=== PATIENT | female | born 1975 | race Caucasian/White ===

== ENCOUNTER 2017-08-17 17:02 | Outpatient (CLI) | END 2017-08-17 20:57 | disposition home or self-care (01) ==

== ENCOUNTER 2017-08-20 17:25 | Outpatient (CLI) | END 2017-08-20 18:45 | disposition home or self-care (01) ==

== ENCOUNTER 2017-08-27 16:36 | Outpatient (CLI) | END 2017-08-27 18:55 | disposition home or self-care (01) ==

== ENCOUNTER 2017-08-27 22:49 | Outpatient (CLI) | END 2017-08-28 06:45 | disposition home or self-care (01) ==

== ENCOUNTER 2017-08-29 10:24 | Outpatient (CLI) | END 2017-08-29 12:11 | disposition home or self-care (01) ==

== ENCOUNTER 2017-08-31 09:50 | Outpatient (CLI) | END 2017-08-31 11:55 | disposition home or self-care (01) ==

== ENCOUNTER 2017-09-03 10:55 | Outpatient (CLI) | END 2017-09-03 12:15 | disposition home or self-care (01) ==

== ENCOUNTER 2017-09-06 09:30 | Outpatient (CLI) | END 2017-09-06 11:07 | disposition home or self-care (01) ==

== ENCOUNTER 2017-09-09 17:05 | Inpatient (IN) | END 2017-09-12 16:10 | disposition home or self-care (01) | DRG 778 ==

== ENCOUNTER 2017-09-19 10:00 | Outpatient (CLI) | END 2017-09-19 11:32 | disposition home or self-care (01) ==

== ENCOUNTER 2017-09-25 17:52 | Outpatient (CLI) | END 2017-09-25 20:35 | disposition home or self-care (01) ==

== ENCOUNTER 2017-10-03 07:46 | Inpatient (IN) | END 2017-10-06 14:50 | disposition home or self-care (01) | DRG 765 ==

== ENCOUNTER 2017-12-17 16:44 | Emergency (ER) | END 2017-12-17 20:22 | disposition home or self-care (01) ==

== ENCOUNTER 2018-12-05 09:51 | Day surgery (SDC) | payer OTHER ==
[~2018-12-05] VITALS: Ht 160 cm; Wt 78.0 kg
--- NOTE | 2018-12-05 06:22 | PREOPHP ---
DATE OF ADMISSION: 12/05/2018 The patient is admitted for D and C HISTORY OF PRESENT ILLNESS: This is a 43-year-old female, 6, para 2 and 3 abortions. The [place] sun had [place] first delivered vaginally in [place] in 2012. In 2018, she had a sec tion, and all previous abortions where before her babies. Her last period was 09/26/2018. Her EDC w as 07/03/2019. PAST MEDICAL HISTORY: This patient had normal medical history: She had gestational diabetes with th e last . ALLERGIES: SHE HAS NO ALLERGIES. SOCIAL HISTORY: She does not drink or smoke. No history of drug addiction and she is only on vitami ns. She came to see me once at this time of this for early and she had an ultras ound order that revealed that she had no heart tones. The beta quantitative hCG were ordered a nd they were in the 70,000 first and coming down in the 50,000 with two test assessment with no heart tones in the ultrasound and decreasing beta quantitative hCG. The patient was advised for a s uction D and C to avoid the bleeding and pain of any spontaneous . PAST HISTORY: As I said, a and vaginal delivery. Otherwise, she is healthy. FAMILY HISTORY: Noncontributory. PHYSICAL EXAMINATION: VITAL SIGNS: She is 5 feet 4 inches. She weighs 173 and blood pressure is 130/70. HEAD AND NECK: Normal. CHEST: Clear. HEART: Normal sinus rhythm. LUNGS: Clear. ABDOMEN: Soft, nontender, no masses. PELVIC: Uterus was about 8 weeks size and adnexa were nonpalpable. EXTREMITIES: Normal. DIAGNOSIS: Missed . PLAN: She is undergoing a suction D and C. She has been advised of the possible risks and possible complication of the procedure with her alternatives and options. Written information was provided. She had no more questions and agreed to go ahead with the procedure with full understanding and no mo re questions. Dictated By: HOLLY CALLES/NTS Conf#: [id number] DID#: [id number]
[~2018-12-05 09:51] MED LIST: CEFAZOLIN 2 GM/50 ML (PMX) 50 ML IVPB SCH; CEPH-443 PO; IBUP-1542 PO; ONDA8TAB14 PO; PNV11TAB PO
[2018-12-05 11:36] VITALS: Ht 160 cm; Wt 78.0 kg
--- NOTE | 2018-12-05 12:15 | PREAC ---
Date/Time of Note Date/Time of Note DATE: 12/05/18 TIME: 12:14 Anesthesia Eval and Record Evaluation Time Pre-Procedure Interview DATE: 12/05/18 TIME: 12:14 Age 43 Sex female NPO: 8 hrs Preoperative diagnosis missed Planned procedure suction D&C Past Medical History Past Medical History: Includes GI: Obesity Surgery & Anesthesia Issues No known issue Meds Anticoagulation: No Beta Sparkle within 24 hr: No Reason Beta Sparkle not given: Pt. not on B-Sparkle Discontinued Reported Medications [id number] ( 19) 1 Each Tablet, 1 TAB PO DAILY, TAB 10/03/17 Discontinued Scripts Ondansetron (Ondansetron Odt) 8 Mg Tab.rapdis, 8 MG PO Q6H PRN for NAUSEA AND/OR VOMITING, #10 TAB Prov:RENEA CARRASCO MD 12/17/17 Cephalexin* (Keflex*) 500 Mg Capsule, 500 MG PO QID for 5 Days, CAP Prov:RENEA CARRASCO MD 12/17/17 Ibuprofen* (Motrin*) 600 Mg Tab, 600 MG PO Q6H PRN for PAIN, #15 TAB Prov:RENEA CARRASCO MD 12/17/17 Current Medications Cefazolin Sodium/ Dextrose 50 ml @ 100 mls/hr ONCE IVPB ; Start 12/05/18 at 06:00; Stop 12/05/18 at 18:00 Meds reviewed: Yes Allergies Coded Allergies: No Known Allergy (Unverified , 12/05/18) Allergies Reviewed: Yes Labs/Studies Labs Reviewed: Reviewed by anesthesiologist test: Positive Pre-procedure Exam Airway: Adequate mouth opening, Adequate thyromental dist Mallampati: Mallampati II Teeth: Normal Lung: Normal Heart: Normal ASA Physical Status ASA physical status: 2 Emergency: None Planned Anesthetic General/MAC: ETT Pre-operative Attestations Prior to commencing anesthesia and surgery, the patient was re-evaluated, there was verification of: *The patient's identity *The results of appropriate recent lab work and preoperative vital signs *The above evaluation not changing prior to induction *Anesthetic plan, risk benefits, alternative and complications discussed with patient/family; questions answered; patient/family understands, accepts and wishes to proceed. BILLY KEVIN Dec 05, 2018 12:15
[2018-12-05] MEDS ORDERED: LIDOCAINE 100 MG SYRINGE ONE (12:23)
[2018-12-05] MEDS ORDERED: PROPOFOL 20 ML ONE (12:23)
[2018-12-05] MEDS ORDERED: SUCCINYLCHOLINE CHLORIDE 100 MG/5 ML SYG IV ONE (12:23)
[2018-12-05] MEDS ORDERED: FENTAnyl 50 MCG/ML VIAL ONE (12:23)
[2018-12-05] MEDS ORDERED: MEPERIDINE 25 MG INJ IV PRN (12:30)
[2018-12-05] MEDS ORDERED: HYDROmorphONE 1 MG/5 ML IV SYRINGE IV PRN ×3 (12:30)
[2018-12-05] MEDS ORDERED: DIPHENHYDRAMINE 50 MG INJ IV PRN (12:30)
[2018-12-05] MEDS ORDERED: ONDANSETRON 4 MG INJ IV PRN (12:30)
[2018-12-05] MEDS ORDERED: FENTAnyl 50 MCG/ML VIAL IV PRN ×3 (12:30)
[2018-12-05] MEDS ORDERED: METOCLOPRAMIDE 10 MG INJ IV PRN (12:30)
[2018-12-05] MEDS ORDERED: ALBUTEROL 0.083% (NEB) 2.5 MG/3 ML AMP HHN PRN (12:30)
[2018-12-05] MEDS ORDERED: KETOROLAC 30 MG INJ ONE (12:57)
[2018-12-05] MEDS ORDERED: OXYTOCIN 10 UNIT INJ ONE (13:01)
--- NOTE | 2018-12-05 13:06 | PD.PPDC ---
PERINATAL DIRECTOR Discharge Instruction Condition [id number] Patient Condition: Efmgg1d Good Diet Ncbjl4Ng Diet: Sfash3k Resume Regular Diet Activity/Restrictions Sishc2Ox Activity: Lkgfh2q Normal Activity May Shower Ptzlg8Vt Restrictions: Cgxzv1i No Exercising No Lifting No Driving No Sexual Activity Nothing in the Vagina No [place] No Tampons, douche Follow-up Follow-up with Physician: 2, Week/Weeks Return to clinic for Doofi6Fk BLANKET WASHER Instructions: Xnpmv6i Fever greater than 101 Chills Worsening abdominal pain Excessive Vaginal Bleeding More than 2 pads per hour Unable to tolerate diet HOLLY TOBIN MD Dec 05, 2018 13:06
--- NOTE | 2018-12-05 13:08 | SIPON ---
Date/Time of Note Date/Time of Note DATE: 12/05/18 TIME: 13:07 Operative Report Preoperative Diagnosis Missed First trimester of Postoperative Diagnosis Same Operation/Procedure Performed Suction D&C Surgeon see signature line seismic survey assistant None Anesthesia: general Estimated blood loss: minimal Transfusion Required none Specimen Products of conception Grafts/Implants none Complications none HOLLY TOBIN MD Dec 05, 2018 13:08
[2018-12-05 13:14] VITALS: BP 123/68; PULSE 105; RESP 20
[2018-12-05 13:23] VITALS: BP 112/64; PULSE 90; RESP 20
[2018-12-05 13:29] VITALS: BP 116/68; PULSE 88; RESP 19
[2018-12-05 13:30] VITALS: BP 111/69; PULSE 86; RESP 25
[2018-12-05] MEDS ORDERED: KETOROLAC 30 MG INJ IV PRN (13:30)
[2018-12-05 13:38] VITALS: BP 111/69; PULSE 84; RESP 18
[2018-12-05 14:18] VITALS: BP 115/65; PULSE 76; RESP 18
--- NOTE | 2018-12-05 15:20 | OPR ---
DATE OF OPERATION: 12/05/2018 PROCEDURE: Suction D and C. PREOPERATIVE DIAGNOSIS: First trimester , missed . POSTOPERATIVE DIAGNOSIS: First trimester , missed . SURGEON: Holly Linder MD ANESTHESIA: Dr. Nguyen with general anesthesia. PROCEDURE: The patient was given general anesthesia, placed in the lithotomy position. The perineal and vaginal area were prepped and draped. Examination under anesthesia revealed that the uterus was retroverted, about 10 weeks' size, and adnexa were negative. There was no active bleeding. The cer vix was opened on examination, and the dilators were applied up to a #9 Hegar dilators and the suctio n curet #8 and 10 were applied and ring forceps were also used to remove endometrial products of con ception. The cavity was revised with sharp instrument and also with the suction curettage and found to be empty. The uterus contracted down. Pitocin IV was given and the patient tolerated the procedu re well and left the OR awake and stable. Sponge counts and instrument counts were correct and intra venous antibiotics were given for prophylaxis. Dictated By: HOLLY ACLLES/NTS Conf#: [id number] DID#: [id number]
--- NOTE | 2018-12-06 15:30 | PAC ---
Date/Time of Note Date/Time of Note DATE: 12/06/18 TIME: 15:30 Post-Anesthesia Notes Post-Anesthesia Note Last documented vital signs Vital Signs Date Temp Pulse Resp B/P (MAP) Pulse Ox O2 O2 Flow FiO2 Time Delivery Rate 12/05/18 98.1 76 18 115/65 99 14:18 (82) 12/05/18 Room Air 13:38 12/05/18 6.0 13:29 Activity: WNL Respiratory function: WNL Cardiovascular function: WNL Mental status: Baseline Pain reasonably controlled: Yes Hydration appropriate: Yes Nausea/Vomiting absent: Yes BILLY KEVIN Dec 06, 2018 15:30
== END 2018-12-05 15:12 | disposition home or self-care (01) ==
LOC: SDS 09:51 → SUR 09:51
PROVIDERS: ATTEND Obstetrics & Gynecology
DX: O02.1 Missed abortion (principal)
CPT/HCPCS: 59820; 85610; 85730; 86850; 86885; 86900; 86901; 88305; J1885; J2001; J2590; J2790; J3010; Z7512; Z7610